=== PATIENT | female | born 1945 | race Caucasian/White ===

== ENCOUNTER → 2017-12-15 | Outpatient (CLI) | payer MEDICARE, OTHER ==
[~2017-12-15] MED LIST: ACET-1748 PO; CALC-649 PO; CELE-1 PO; DAR100 PO; DICL1TAB85 PO; DIP25 PO; DOCU-416 PO; ENO100I SC; FOL1 PO; IBAN150T6 PO; LEVO50 PO; LOR5/325 PO; LOR7.5/325 PO; LORA-1455 PO; MAX75 PO; METF-1 PO; MON10 PO; NAPR-1043 PO; OFF COUMADIN FOR OR PO; OMEP-218 PO; SIMV-42 PO; TAMS0.4C76 PO; TRA50 PO; WAR25 PO; WAR5 PO; WAR75 PO; WATER PILL PO
--- NOTE | 2017-12-15 14:36 | RADIOLOGY IMAGING REPORT ---
[place] [facility] [place] Kayla Melvin : 1945 MR: [id number] V: [id number] EXAM DATE: ORDERING PHYSICIAN: JOANNA MARCELO TECHNOLOGIST: [place] [facility] [place] Kayla Melvin : 1945 Visit/Account:[id number] Date of Sevice: 12/15/2017 THYROID HISTORY: Hyperthyroidism, multinodular goiter COMPARISON: January 30, 2017 FINDINGS: SIZE: Right lobe: 3.9 x 1.4 x 1.2 cm Left lobe: 5.9 x 1.9 x 2.4 cm Isthmus: 4 mm PARENCHYMA: Heterogeneous NODULES: Right lobe: * Multiple hypoechoic nodules seen throughout the right lobe the largest in the anterior mid right l obe measures up to 1.1 cm in diameter and appears relatively unchanged Left lobe: * There are numerous nodules in the left lobe which are difficult to compare. There is a 2.1 cm par tially cystic nodule in the mid left lobe appears relatively unchanged Isthmus: * There Is a 1.8 cm nodule left-sided isthmus which appears slightly decreased VASCULARITY: Both lobes are mildly hypervascular ADDITIONAL FINDINGS: None. IMPRESSION: There are multiple bilateral thyroid nodules that appear relatively unchanged other than the left-brown ed isthmus nodule that appears slightly less prominent REFERENCE: 2015 [place] [employer] Management Guidelines for Adult Patients with Thyroid Nodules and D ifferentiated Thyroid Cancer: The [place] [employer] Guidelines Task Force on Thyroid Nodul es and Differentiated Thyroid Cancer. SONOGRAPHIC PATTERNS: * Benign: Purely cystic nodules (no solid component); estimated risk of malignancy <1 percent; no bi opsy recommended. * Very Low Suspicion: Spongiform or partially cystic nodules without any of the sonographic features described in low, intermediate, or high suspicion patterns; estimated risk of malignancy <3 percent; consider FNA at > 2 cm (Observation without FNA is also a reasonable option). * Low Suspicion: Isoechoic or hyperechoic solid nodule, or partially cystic nodule with eccentric so lid areas, without microcalcification, irregular margin or ETE (extra-thyroidal extension), or taller than wide shape; estimated risk of malignancy 5-10 percent; recommend FNA at >1.5 cm. * Intermediate Suspicion: Hypoechoic solid nodule with smooth margins without microcalcifications, E TE (extra-thyroidal extension), or taller than wide shape; estimated risk of malignancy 10-20 percent ; recommend FNA at > 1 cm. * High Suspicion: Solid hypoechoic nodule or solid hypoechoic component of a partially cystic nodule with one or more of the following features: irregular margins (infiltrative, microlobulated), microc alcifications, taller than wide shape, rim calcifications with small extrusive soft tissue component, evidence of ETE (extra-thyroidal extension); estimated risk of malignancy >70-90 percent; recommend FNA at > 1 cm. NOTES: * Although a sonographically suspicious subcentimeter thyroid nodule without evidence of extrathyroi frankie extension or sonographically suspicious lymph nodes may be observed with close sonographic follow -up rather than pursuing immediate FNA, patient age and preference may modify decision-making. A > 50% interval increase in nodule volume and/or development of new suspicious sonographic features are felt to be a valid reasons for potential re-aspiration of a nodule previously shown to have benig n FNA cytology. Report Dictated By: Stephany Espinal MD at 12/15/2017 2:24 PM Report E-Signed By: Stephany Espinal MD at 12/15/2017 2:31 PM WSN:[email or web address]
== END ==
LOC: US 12:19
PROVIDERS: ATTEND Internal Medicine
DX: E04.2 Nontoxic multinodular goiter (principal)
CPT/HCPCS: 76536

== ENCOUNTER → 2018-10-28 | Outpatient (REF) | payer MEDICARE, OTHER ==
[~2018-10-28] MED LIST changes: +FURO-45 PO; +LISI-362 PO; +WARF5TAB23 PO
== END ==
LOC: ZZSENDIN 16:05
PROVIDERS: ATTEND Family Medicine
DX: E87.6 Hypokalemia (principal)
CPT/HCPCS: 82310; 82374; 82435; 82565; 82947; 84132; 84295; 84520

== ENCOUNTER → 2018-11-10 | Outpatient (CLI) | payer MEDICARE, OTHER ==
--- NOTE | 2018-11-10 16:50 | RADIOLOGY IMAGING REPORT ---
FACILITY: [facility] PATIENT NAME: Kayla Melvin : 1945 MR: [id number] V: [id number] EXAM DATE: ORDERING PHYSICIAN: JOANNA MARCELO [place]CHNOLOG[place] [facility] [place] Kayla Mel[place] : 1945 Visit/Account:[id number] Date of Sevice: 11/10/2018 THYROID HISTORY: Multinodular goiter COMPARISON: December 15, 2017 FINDINGS: SIZE: Normal. Right lobe: 4 x 1.4 x 1.7 cm Left lobe: 5.9 x 1.7 x 2.1 cm Isthmus: 2.3 mm PARENCHYMA: Heterogeneous bilaterally NODULES: Right lobe: * There multiple small hypoechoic nodules again seen throughout the right lobe. The largest measure s 1 cm in diameter and is in the anterior mid right lobe. This appears unchanged Left lobe: * Multiple solid nodules again seen throughout the left lobe.. These are difficult to compare due t o difference in imaging technique. The largest is partially cystic located in the inferior pole bj uring 1.9 cm in diameter appears relatively unchanged. An additional 1.8 cm solid hypoechoic nodule in the inferior pole also appears unchanged. Isthmus: * None discrete. VASCULARITY: Increased bilaterally ADDITIONAL FINDINGS: None. IMPRESSION: Multiple bilateral cystic and solid thyroid nodules are again seen. This was somewhat difficult to c ompare completely due to imaging techniques although the overall appearance is similar to the prior s tudy REFERENCE: 2015 [place] [employer] Management Guidelines for Adult Patients with Thyroid Nodules and D ifferentiated Thyroid Cancer: The [place] [employer] Guidelines Task Force on Thyroid Nodul es and Differentiated Thyroid Cancer. SONOGRAPHIC PATTERNS: * Benign: Purely cystic nodules (no solid component); estimated risk of malignancy <1 percent; no bi opsy recommended. * Very Low Suspicion: Spongiform or partially cystic nodules without any of the sonographic features described in low, intermediate, or high suspicion patterns; estimated risk of malignancy <3 percent; consider FNA at > 2 cm (Observation without FNA is also a reasonable option). * Low Suspicion: Isoechoic or hyperechoic solid nodule, or partially cystic nodule with eccentric so lid areas, without microcalcification, irregular margin or ETE (extra-thyroidal extension), or taller than wide shape; estimated risk of malignancy 5-10 percent; recommend FNA at >1.5 cm. * Intermediate Suspicion: Hypoechoic solid nodule with smooth margins without microcalcifications, E TE (extra-thyroidal extension), or taller than wide shape; estimated risk of malignancy 10-20 percent ; recommend FNA at > 1 cm. * High Suspicion: Solid hypoechoic nodule or solid hypoechoic component of a partially cystic nodule with one or more of the following features: irregular margins (infiltrative, microlobulated), microc alcifications, taller than wide shape, rim calcifications with small extrusive soft tissue component, evidence of ETE (extra-thyroidal extension); estimated risk of malignancy >70-90 percent; recommend FNA at > 1 cm. NOTES: * Although a sonographically suspicious subcentimeter thyroid nodule without evidence of extrathyroi frankie extension or sonographically suspicious lymph nodes may be observed with close sonographic follow -up rather than pursuing immediate FNA, patient age and preference may modify decision-making. A > 50% interval increase in nodule volume and/or development of new suspicious sonographic features are felt to be a valid reasons for potential re-aspiration of a nodule previously shown to have benig n FNA cytology. Report Dictated By: Stephany Espinal MD at 11/10/2018 4:28 PM Report E-Signed By: Stephany Espinal MD at 11/10/2018 4:46 PM KARELYN:[email or web address]
== END ==
LOC: US 13:46
PROVIDERS: ATTEND Internal Medicine
DX: E04.2 Nontoxic multinodular goiter (principal)
CPT/HCPCS: 76536

== ENCOUNTER → 2019-01-03 | Outpatient (REF) | payer MEDICARE, OTHER | LOC: ZZSENDIN 17:29 | PROVIDERS: ATTEND Family Medicine | DX: R07.9 Chest pain, unspecified (principal); E87.6 Hypokalemia | CPT/HCPCS: 82040; 82247; 82310; 82374; 82435; 82565; 82947; 83735; 84075; 84132; 84155; 84295; 84450; 84460; 84520; 85379 ==

== ENCOUNTER → 2019-03-24 | Outpatient (CLI) | payer MEDICARE, OTHER ==
--- NOTE | 2019-03-24 16:22 | RADIOLOGY IMAGING REPORT ---
FACILITY: [facility] [place] PATIENT NAME: Kayla Melvin : 1945 MR: [id number] V: [id number] EXAM DATE: ORDERING PHYSICIAN: NERIS PABON TECHNOLOGIST: Location: [facility] - [place] Patient: Kayla Melvin : 1945 Visit/Account:[id number] Date of Sevice: 03/24/2019 Exam type: XR WRIST 2 VWS RT History: Injury to right wrist yesterday, pain on medial aspect Comparison: None. Findings: Two views of the right wrist were submitted. No gross evidence of acute fracture dislocation seen on this limited two-view study. Extensive calcifications are seen of the triangular fibrocartilage. C alcified occasions are also noted along the lateral aspect of the radiocarpal joint. Cystic changes are seen at the ulnar styloid IMPRESSION: 1. Degenerative changes of the right wrist although no gross evidence of acute fracture-dislocation on this limited two-view study Report Dictated By: Stephany Espinal MD at 03/24/2019 3:54 PM Report E-Signed By: Stephany Espinal MD at 03/24/2019 4:17 PM WSN:[email or web address]
== END ==
LOC: RAD 12:49
PROVIDERS: ATTEND Family Medicine
DX: M19.031 Primary osteoarthritis, right wrist (principal)

== ENCOUNTER → 2019-04-19 | Outpatient (CLI) | payer MEDICARE, OTHER ==
[~2019-04-19] MED LIST changes: +REGADENOSON 0.4 MG/5 ML SYR ONE
--- NOTE | 2019-04-19 17:36 | RADIOLOGY IMAGING REPORT ---
FACILITY: [facility] - [place] PATIENT NAME: Kayla Melvin : 1945 MR: [id number] V: [id number] EXAM DATE: ORDERING PHYSICIAN: NERIS PABON TECHNOLOGIST: Location: [facility] Patient: Kayal Melvin : 1945 Visit/Account:[id number] Date of Sevice: 04/19/2019 EXAMINATION: Single isotope SPECT imaging with regadenoson infusion and gated SPECT imaging. DATE OF EXAMINATION: April 19, 2019. DATE OF INTERPRETATION: April 19, 2019. REQUESTING PHYSICIAN: NERIS PABON. INDICATION: The patient is a 74-year-old female evaluated for pain. PROCEDURE: After informed consent the patient received an intravenous injection of 11.7 mCi of Tc-99 m sestamibi followed at an appropriate time interval by rest imaging. The patient then subsequently received an intravenous infusion of 0.4 mg of regadenoson per protocol without complication. Resting heart rate was 85 bpm with a peak heart rate of 108 bpm. Blood pressure at rest was 128 / 78 and fo llowing infusion was 137 / 83. Baseline EKG demonstrates sinus rhythm. There were no diagnostic EKG changes of ischemia following infusion. Symptoms were nonspecific. The patient then received an in travenous injection of 29.5 mCi of Tc-99m sestamibi followed by stress imaging. RAW DATA: Examination of the summed raw data revealed a fair quality study. MYOCARDIAL PERFUSION: The tomographic images demonstrate normal perfusion rest and stress. GATED IMAGES: The gated images demonstrate normal regional wall motion and thickening, LVEF 70%. IMPRESSION: 1. Nondiagnostic Lexiscan stress ECG 2. Normal myocardial perfusion scan. 3. Normal LV systolic function; LVEF 70%. Report Dictated By: James Krueger MD at 04/19/2019 5:28 PM Report E-Signed By: James Krueger MD at 04/19/2019 5:30 PM WSN:[id number]
== END ==
LOC: NUC 04-18 00:31
PROVIDERS: ATTEND Family Medicine
DX: R07.2 Precordial pain (principal)
CPT/HCPCS: 78452; A9500; J2785; 93017